=== PATIENT | male | born 1960 | race Caucasian/White ===

== ENCOUNTER → 2021-04-20 | Outpatient (CLI) | payer OTHER ==
[~2021-04-20] MED LIST: IOHEXOL 240 MG/ML 50ML VIAL. ONE
--- NOTE | 2021-04-20 12:20 | RAD ---
EXAMINATION: CT abdomen and pelvis without IV contrast. INDICATION:60 years, Male, abdominal distention. TECHNIQUE: Axial CT images of the abdomen and pelvis were obtained. Coronal and sagittal reformatted performed. COMPARISON: None. Exposure: One or more of the following individualized dose reduction techniques were utilized for thi s examination: 1. Automated exposure control 2. Adjustment of the mA and/or kV according to patient size 3. Use of iterative reconstruction technique. FINDINGS: LOWER CHEST: Dependent bibasilar subsegmental atelectasis. ABDOMEN/PELVIS: Within limitation of noncontrast exam, Liver, gallbladder, biliary ducts and adrenals are unremarkable. Spleen measures up to 14 cm in lengt h. Mildly atrophic pancreatic parenchyma with fat infiltration. No hydronephrosis or nephrolithiasis in either kidney. No bowel obstruction or wall thickening. Normal appendix. Few colonic diverticulosi s without diverticulitis. Mild aortoiliac atherosclerotic calcifications without dilation. No pneumop eritoneum or ascites. No lymphadenopathy in the abdomen or pelvis by size criteria. Unremarkable urin pamela bladder. Postsurgical changes of prostatectomy. MUSCULOSKELETAL: No acute osseous process or suspicious lesion. Mild degenerative changes in the spine. Small fat-cont aining left inguinal hernia. IMPRESSION: 1. No acute abnormality in the abdomen or pelvis. 2. Mild splenomegaly. Electronically signed by: Susannah Valles MD (04/20/2021 12:17 PM) [id number]
== END ==
LOC: CT 09:16
PROVIDERS: ATTEND Family Medicine
DX: R16.1 Splenomegaly, not elsewhere classified (principal); K40.90 Unilateral inguinal hernia, without obstruction or gangrene, not specified as recurrent; K57.30 Diverticulosis of large intestine without perforation or abscess without bleeding; I70.0 Atherosclerosis of aorta; Z90.79 Acquired absence of other genital organ(s)
CPT/HCPCS: 74176